=== PATIENT | male | born 1950 | race Caucasian/White ===

== ENCOUNTER 2016-07-26 13:22 | Emergency (ER) | payer MEDICARE, BC ==
[2016-07-26 14:53] VITALS: BP 112/56
--- NOTE | 2016-07-26 15:14 | UC ---
Respiratory Complaint HPI - HPI Summary HPI Summary: URI symptoms for 2d. Mild ST, malaise, headache, sinus congestion and drainage, dry cough. "I have to get on top of this early or else it turns into bronchitis. " Non smoker. No asthma. We had a discussion about viral illness and how it doesn't respond to an antibiotic. He is receptive to this idea, but says he gets an antibiotic for these symptoms about twice a year. His sister, an RN, has told him this is not indicated. HE is travelling to [facility] tomorrow, would like to have meds at his disposal in case he worsens - History of Current Complaint Chief Complaint: UCGeneralIllness Stated Complaint: COUGH,CONGESTION Time Seen by Provider: 07/26/16 14:57 Hx Obtained From: Patient Onset/Duration: Gradual Onset Timing: Constant Severity Initially: Mild Severity Currently: Mild Character: Cough: Nonproductive Aggravating Factors: Recumbent Position Alleviating Factors: Nothing Associated Signs And Symptoms: Positive: Chills, URI, Nasal Congestion, Hoarseness. Negative: Fever, Wheezing, Hemoptysis, Dizziness - Risk Factors Pulmonary Embolism Risk Factors: Negative Cardiac Risk Factors: Negative Pseudomonas Risk Factors: Negative Tuberculosis Risk Factors: Negative - Allergies/Home Medications Allergies/Adverse Reactions: Allergies Allergy/AdvReac Type Severity Reaction Status Date / Time environmental Allergy Congestion Uncoded 07/26/16 14:45 Home Medications: Home Medications Ascorbic Acid TAB* [Vitamin C TAB*] 1,000 mg PO TID 07/26/16 [History Confirmed 07/26/16] Zinc [Zinc Methionate] 2 tab PO TID 07/26/16 [History Confirmed 07/26/16] PMH/Surg Hx/FS Hx/Imm Hx Previously Healthy: Yes - Surgical History Surgical History: None - Family History Known Family History: Negative: Respiratory Disease - no asthma - Social History Occupation: Employed Full-time Lives: With Family Alcohol Use: None Substance Use Type: None Smoking Status (MU): Former Smoker Type: Cigarettes Amount Used/How Often: 1/4 PPD Length of Time of Smoking/Using Tobacco: 4-5 Years Have You Smoked in the Last Year: No When Did the Patient Quit Smoking/Using Tobacco: ~1983 - Immunization History Most Recent Influenza Vaccination: June 2016 Most Recent Tetanus Shot: 1998 Review of Systems Constitutional: Negative Skin: Negative Eyes: Negative ENT: Sore Throat, Nasal Discharge Respiratory: Cough Cardiovascular: Negative Gastrointestinal: Negative Genitourinary: Negative Motor: Negative Neurovascular: Negative Musculoskeletal: Negative Neurological: Negative Psychological: Negative All Other Systems Reviewed And Are Negative: Yes Physical Exam Triage Information Reviewed: Yes Appearance: Well-Appearing, No Pain Distress, Well-Nourished Vital Signs: Initial Vital Signs Temp 97.5 F 07/26/16 14:48 Pulse 59 07/26/16 14:48 Resp 16 07/26/16 14:48 BP 112/56 07/26/16 14:48 Pulse Ox 98 07/26/16 14:48 Vital Signs Reviewed: Yes Eye Exam: Normal ENT: Positive: Hearing grossly normal, Pharyngeal erythema - mild, Nasal congestion, Nasal drainage, Muffled/hoarse voice - hoarse, Other: - right ear canal has white stone-like protrusions in front of the TM; not FB's, attached to canal. Negative: Tonsillar swelling, Tonsillar exudate, Trismus Neck exam: Normal Neck: Positive: Supple Respiratory Exam: Normal Respiratory: Positive: Lungs clear, Normal breath sounds, No respiratory distress, No accessory muscle use Cardiovascular Exam: Normal Musculoskeletal Exam: Normal Neurological Exam: Normal Psychological Exam: Normal Skin Exam: Normal UC Diagnostic Evaluation - Laboratory O2 Sat by Pulse Oximetry: 98 Respiratory Course/Dx - Differential Dx/Diagnosis Differential Diagnosis/HQI/PQRI: Bronchitis, Lower Resp Infection, Sinusitis Provider Diagnoses: URI Discharge - Discharge Plan Condition: Stable Disposition: HOME Prescriptions: Azithromycin TAB* [Zithromax TAB (Z-ANA) 250 mg #6 tabs] 2 tab PO .TODAY, THEN 1 DAILY #1 ana Hydrocodone Polistirex-Chlorph [Tussionex Pennkinetic Ext 10-8 mg/5Ml] 1 teasp PO BID PRN #100 ml MDD 10cc PRN Reason: Cough Patient Education Materials: Upper Respiratory Infection (ED) Referrals: Jaciel Rucker MD [Primary Care Provider] - Additional Instructions: The antibiotic will be helpful only if a bacterial infection follows the viral infection you have. That typically happens after 10 days to 2 weeks of illness. If you run a fever over 101 or feel worse after 10 days to 2 weeks, then start the antibiotic. Otherwise, use the cough medicaiton and over the counter aids to ease the symptoms. The illness lasts about 3 weeks on average.
== END 2016-07-26 15:28 | disposition home or self-care (01) ==
LOC: UCCORT 13:22
DX: J06.9 Acute upper respiratory infection, unspecified (principal); Z87.891 Personal history of nicotine dependence
CPT/HCPCS: 99212; G0463

== ENCOUNTER 2018-07-11 09:03 | Emergency (ER) | payer MEDICARE, BC ==
[2018-07-11 09:28] VITALS: BP 146/65
[2018-07-11] MEDS ORDERED: Ibuprofen TAB* 600 MG PO ONE (09:35)
[2018-07-11] MEDS ORDERED: Tetan/Diph/Pertus SYR(Tdap)* 0.5 ML SYR(BOOSTRIX) use SYR IM ONE (09:37)
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
== END 2018-07-11 10:26 | disposition home or self-care (01) ==
LOC: UCCORT 09:03
DX: T23.261A Burn of second degree of back of right hand, initial encounter (principal); T20.17XA Burn of first degree of neck, initial encounter; T31.0 Burns involving less than 10% of body surface; X19.XXXA Contact with other heat and hot substances, initial encounter; Y93.E9 Activity, other interior property and clothing maintenance; Y92.009 Unspecified place in unspecified non-institutional (private) residence as the place of occurrence of the external cause; Z87.891 Personal history of nicotine dependence
CPT/HCPCS: 90471; 90715; 99213; A9270-GY; G0463

== ENCOUNTER 2018-08-27 10:53 | Emergency (ER) | payer BC, MEDICARE ==
[2018-08-27 11:09] VITALS: BP 119/65
--- NOTE | 2018-08-27 11:21 | UC ---
Throat Pain/Nasal Jose HPI - HPI Summary HPI Summary: nasal congestion x 1 day sinus pressure , green nasal discharge, no cough , no fever, no chills , no body aches - History of Current Complaint Chief Complaint: UCRespiratory Stated Complaint: SINUSES, SORE THROAT Time Seen by Provider: 08/27/18 11:05 Hx Obtained From: Patient Onset/Duration: Gradual Onset, Lasting Days - 1, Still Present Severity: Moderate Pain Intensity: 0 Cough: None Associated Signs & Symptoms: Positive: Sinus Discomfort, Nasal Discharge. Negative: Fever, Vomiting, Rash - Allergies/Home Medications Allergies/Adverse Reactions: Allergies Allergy/AdvReac Type Severity Reaction Status Date / Time No Known Allergies Allergy Verified 08/27/18 11:06 Home Medications: Home Medications NK [No Home Medications Reported] 08/27/18 [History Confirmed 08/27/18] PMH/Surg Hx/FS Hx/Imm Hx Previously Healthy: Yes - Surgical History Surgical History: None - Family History Known Family History: Negative: Respiratory Disease - no asthma - Social History Alcohol Use: None Substance Use Type: None Smoking Status (MU): Former Smoker Type: Cigarettes Amount Used/How Often: 1/4 PPD Length of Time of Smoking/Using Tobacco: 4-5 Years Have You Smoked in the Last Year: No When Did the Patient Quit Smoking/Using Tobacco: ~1983 - Immunization History Most Recent Influenza Vaccination: June 2016 Most Recent Tetanus Shot: 01/12/15 Vaccination Up to Date: No Review of Systems All Other Systems Reviewed And Are Negative: Yes Constitutional: Positive: Negative Skin: Positive: Negative Eyes: Positive: Negative ENT: Positive: Nasal Discharge Respiratory: Positive: Cough Cardiovascular: Positive: Negative Is Patient Immunocompromised?: No Physical Exam Triage Information Reviewed: Yes Appearance: Well-Appearing, No Pain Distress, Well-Nourished Vital Signs: Initial Vital Signs Temp 97.1 F 08/27/18 11:07 Pulse 58 08/27/18 11:07 Resp 14 08/27/18 11:07 BP 119/65 08/27/18 11:07 Pulse Ox 98 08/27/18 11:07 Vital Signs Reviewed: Yes Eye Exam: Normal Eyes: Positive: Conjunctiva Clear ENT: Positive: Normal ENT inspection, Hearing grossly normal, Pharynx normal Neck: Positive: Supple, Nontender, No Lymphadenopathy Respiratory: Positive: Chest non-tender, Lungs clear, Normal breath sounds Cardiovascular: Positive: RRR, No Murmur, Pulses Normal Skin Exam: Normal Throat Pain/Nasal Course/Dx - Differential Dx/Diagnosis Provider Diagnosis: URI (upper respiratory infection) Discharge - Sign-Out/Discharge Documenting (check all that apply): Patient Departure All imaging exams completed and their final reports reviewed: No Studies - Discharge Plan Condition: Stable Disposition: HOME Patient Education Materials: Upper Respiratory Infection (ED) Referrals: Juancho Purdy MD [Primary Care Provider] - If Needed - Billing Disposition and Condition Condition: STABLE Disposition: Home
== END 2018-08-27 11:20 | disposition home or self-care (01) ==
LOC: UCCORT 10:53
DX: J06.9 Acute upper respiratory infection, unspecified (principal); Z87.891 Personal history of nicotine dependence
CPT/HCPCS: 99211; G0463

== ENCOUNTER 2019-03-25 15:29 | Emergency (ER) | payer MEDICARE, BC ==
[2019-03-25 15:50] VITALS: BP 124/63
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
[2019-03-25] MEDS ORDERED: Albuterol 2.5 MG/3 ML NEB.SOL* (0.083%) INH ONE (16:20)
== END 2019-03-25 17:02 | disposition home or self-care (01) ==
LOC: UCCORT 15:29
DX: J06.9 Acute upper respiratory infection, unspecified (principal); J40 Bronchitis, not specified as acute or chronic; R00.1 Bradycardia, unspecified; Z87.891 Personal history of nicotine dependence
CPT/HCPCS: 93005; 99212; G0463